=== PATIENT | female | born 1955 | race Caucasian/White ===

== ENCOUNTER → 2017-01-20 | Outpatient (CLI) | payer OTHER ==
--- NOTE | 2017-01-20 16:55 | REP ---
MAXILLOFACIAL CT WITHOUT CONTRAST: HISTORY: Chronic maxillary sinusitis. COMPARISON: 08/08/2008. The sinuses are clear. The osteomeatal units are patent. The middle and inferior nasal turbinates are partially paradoxical. There is minimal deviation of the nasal septum to the left. A spur is present arising from the left side of the nasal septum. The cribriform plate, medial cool of the orbits and optic canals are intact. The carotid canals form a segment of the posterolateral cool of the sphenoid sinus. IMPRESSION:There is no acute or chronic sinusitis. Signed by Denis Holt MD 01/20/2017 05:03 P
== END ==
LOC: M RAD 16:00
PROVIDERS: ATTEND Otolaryngology
DX: J31.0 Chronic rhinitis (principal)

== ENCOUNTER → 2017-02-10 | Outpatient (CLI) | payer OTHER | LOC: M LAB 10:21 | PROVIDERS: ATTEND Ophthalmology | DX: Z51.81 Encounter for therapeutic drug level monitoring (principal); Z79.899 Other long term (current) drug therapy; I77.6 Arteritis, unspecified ==

== ENCOUNTER → 2017-02-10 | Outpatient (CLI) | payer OTHER ==
[2017-02-10 11:54] LABS: ALBUMIN/GLOBULIN RATIO 1.11 (1.00-1.93); BILIRUBIN,DIRECT 0.2 MG/DL (0.0-0.2); BILIRUBIN,TOTAL 0.7 MG/DL (0.2-1.0); TOTAL PROTEIN 7.6 GM/DL (6.4-8.2)
== END ==
LOC: M LAB 10:17
PROVIDERS: ATTEND Podiatrist
DX: Z51.81 Encounter for therapeutic drug level monitoring (principal); Z79.899 Other long term (current) drug therapy

== ENCOUNTER → 2017-05-31 | Outpatient (REF) | payer OTHER ==
[2017-05-31 18:57] LABS: FOLATE > 24.0 NG/ML; VITAMIN B12 LEVEL 671 PG/ML
[2017-05-31 19:30] LABS: IRON (FE) 85 UG/DL (50-170); PERCENT SATURATION 24.3 % (13.2-45.0); TOTAL IRON BINDING CAPACITY 350 UG/DL (250-450)
== END ==
LOC: M LAB REF 18:02
DX: D72.819 Decreased white blood cell count, unspecified (principal)

== ENCOUNTER → 2017-11-04 | Outpatient (REF) | payer OTHER ==
[2017-11-04 13:29] LABS: BASO % 0.5 % (0.0-1.0); EOS # 0.1 10^3/uL (0.0-0.50); EOS % 2.2 % (0.0-3.0); HEMATOCRIT 40.5 % (36.0-47.0); HEMOGLOBIN 14.3 g/dl (12.0-15.5); IMMATURE GRANULOCYTE % 0.3 % (0-3.0); LYMPH # 1.2 10^3/uL (1.5-4.5); LYMPH % 32.7 % (24.0-44.0); MEAN CORPUSCULAR HEMOGLOBIN 31.6 pg (27.0-33.0); MEAN CORPUSCULAR HGB CONC 35.3 g/dl (32.0-36.5); MEAN CORPUSCULAR VOLUME 89.4 fl (80.0-96.0); MONO # 0.6 10^3/uL (0.0-0.8); MONO % 15.3 % (0.0-5.0); NEUTROPHILS # 1.8 10^3/uL (1.8-7.7); PLATELET COUNT, AUTOMATED 168 10^3/uL (150-450); RED BLOOD COUNT 4.53 10^6/uL (4.00-5.40); RED CELL DISTRIBUTION WIDTH 12.4 % (11.5-14.5); WHITE BLOOD COUNT 3.7 10^3/uL (4.0-10.0)
[2017-11-04 13:42] LABS: ALBUMIN 3.8 GM/DL (3.2-5.2); ALBUMIN/GLOBULIN RATIO 1.27 (1.00-1.93); ALKALINE PHOSPHATASE 66 U/L (45-117); ALT/SGPT 27 U/L (12-78); ANION GAP 8 MEQ/L (8-16); AST/SGOT 13 U/L (7-37); BILIRUBIN,TOTAL 0.4 MG/DL (0.2-1.0); BLOOD UREA NITROGEN 16 MG/DL (7-18); CALCIUM LEVEL 8.9 MG/DL (8.8-10.2); CARBAMAZEPINE (TEGRETOL) LEVEL 5.5 UG/ML (4.0-10.0); CARBON DIOXIDE LEVEL 28 MEQ/L (21-32); CHLORIDE LEVEL 102 MEQ/L (98-107); CREATININE FOR GFR 0.48 MG/DL (0.55-1.30); GLOMERULAR FILTRATION RATE > 60.0 (>45); GLUCOSE, FASTING 84 MG/DL (70-100); POTASSIUM SERUM 4.2 MEQ/L (3.5-5.1); SODIUM LEVEL 138 MEQ/L (136-145); TOTAL PROTEIN 6.8 GM/DL (6.4-8.2)
== END ==
LOC: M LABNEURO 09:35
DX: Z51.81 Encounter for therapeutic drug level monitoring (principal); Z79.899 Other long term (current) drug therapy

== ENCOUNTER → 2018-05-11 | Outpatient (CLI) | payer OTHER ==
[2018-05-12 14:55] LABS: SSA SJOGRENS A <0.2 AI (0.0-0.9); SSB SJOGRENS B <0.2 AI (0.0-0.9)
== END ==
LOC: M LAB 11:28
PROVIDERS: ATTEND Ophthalmology
DX: M35.00 Sjogren syndrome, unspecified (principal)

== ENCOUNTER 2018-10-12 07:15 | Day surgery (SDC) | payer OTHER ==
[~2018-10-12] VITALS: Ht 160 cm; Wt 91.2 kg
[~2018-10-12 07:15] MED LIST: COMB0.2S OU; EXEM25TA PO; NS 1,000 ML IV ONE; TRAV04OPD OU; vitamins
[2018-10-12] MEDS ORDERED: PROPOFOL 200 MG/20 ML VIAL As Ordered ONE (07:49)
[2018-10-12] MEDS ORDERED: LIDOCAINE 2% INJ 100 MG/5 ML SDV (FOR ANES.) As Ordered ONE (08:20)
[2018-10-12] MEDS ORDERED: fentaNYL 100 MCG/2 ML INJECTION (J3010) As Ordered ONE (08:20)
--- NOTE | 2018-10-12 09:36 | ROOR ---
Patient Name: Lisa Leal Procedure Date: 10/12/2018 9:10 AM Date of : 1955 Age: 63 Room: [facility] Gender: Female Note Status: Finalized Procedure: Upper Endoscopy + Biopsies Indications: Heartburn, Exclusion of Mendoza's esophagus Providers: Clyde Pugh MD Referring MD: CASSI HOGAN JR, MD Requesting Provider: Medicines: Monitored Anesthesia Care Complications: No immediate complications. Procedure: Pre-Anesthesia Assessment: - The heart rate, respiratory rate, oxygen saturations, blood pressure, adequacy of pulmonary ventilation, and response to care were monitored throughout the procedure. The Endoscope was introduced through the mouth, and advanced to the second part of duodenum. The upper GI endoscopy was accomplished without difficulty. The patient tolerated the procedure well. Findings: The Z-line was irregular and was found 38 cm from the incisors. Multiple biopsies were obtained with cold forceps for evaluation to rule out Mendoza's Esophagus randomly at the gastroesophageal junction. A small hiatal hernia was present. Multiple localized, diminutive non-bleeding erosions were found in the gastric antrum. There were no stigmata of recent bleeding. Biopsies were taken with a cold forceps for Helicobacter pylori testing. The exam of the duodenum was otherwise normal. Impression: - Z-line irregular, 38 cm from the incisors. - Small hiatal hernia. - Non-bleeding erosive gastropathy. Biopsied. - Multiple biopsies were obtained at the gastroesophageal junction. - The examination was otherwise normal. Recommendation: - Patient has a contact number available for emergencies. The signs and symptoms of potential delayed complications were discussed with the patient. Return to normal activities tomorrow. Written discharge instructions were provided to the patient. - High fiber diet. - Discharge patient to home. - Follow an antireflux regimen. - Continue present medications. - Await pathology results. - Telephone GI clinic for pathology results in 1 week. - Return to referring physician. - The findings and recommendations were discussed with the patient's family. Clyde Pugh MD Clyde Pugh MD 10/12/2018 9:35:57 AM Electronically signed by Clyde Pugh MD Number of Addenda: 0 Note Initiated On: 10/12/2018 9:10 AM Estimated Blood Loss: Estimated blood loss: none.
--- NOTE | 2018-10-12 09:54 | ROOR ---
Patient Name: Lisa Leal Procedure Date: 10/12/2018 9:11 AM Date of : 1955 Age: 63 Room: [facility] Gender: Female Note Status: Finalized Procedure: Total Colonoscopy to Cecum Indications: Colon cancer screening in patient at increased risk: Family history of 1st-degree relative with colon polyps, High risk colon cancer surveillance: Personal history of colonic polyps Providers: Clyde Pugh MD Referring MD: CASSI HOGAN JR, MD Requesting Provider: Medicines: Monitored Anesthesia Care Complications: No immediate complications. Procedure: Pre-Anesthesia Assessment: - The heart rate, respiratory rate, oxygen saturations, blood pressure, adequacy of pulmonary ventilation, and response to care were monitored throughout the procedure. The Colonoscope was introduced through the anus and advanced to the cecum, identified by appendiceal orifice and ileocecal valve. The colonoscopy was performed without difficulty. The patient tolerated the procedure well. The quality of the bowel preparation was good. Findings: The perianal and digital rectal examinations were normal. Non-bleeding internal hemorrhoids were found during retroflexion. The hemorrhoids were small and Grade I (internal hemorrhoids that do not prolapse). Scattered small-mouthed diverticula were found in the recto-sigmoid colon, sigmoid colon and descending colon. The exam was otherwise without abnormality on direct and retroflexion views. Impression: - Non-bleeding internal hemorrhoids. - Diverticulosis in the recto-sigmoid colon, in the sigmoid colon and in the descending colon. - The examination was otherwise normal on direct and retroflexion views. - No specimens collected. - The exam was otherwise normal to the cecum. Recommendation: - Patient has a contact number available for emergencies. The signs and symptoms of potential delayed complications were discussed with the patient. Return to normal activities tomorrow. Written discharge instructions were provided to the patient. - High fiber diet. - Discharge patient to home. - Continue present medications. - Repeat colonoscopy in 5 years for surveillance. - Return to referring physician. - The findings and recommendations were discussed with the patient's family. Clyde Pugh MD Clyde Pugh MD 10/12/2018 9:54:44 AM Electronically signed by Clyde Pugh MD Number of Addenda: 0 Note Initiated On: 10/12/2018 9:11 AM Estimated Blood Loss: Estimated blood loss: none.
[2018-10-12 10:25] VITALS: BP 144/86
== END 2018-10-12 10:50 | disposition home or self-care (01) ==
LOC: M OPP 07:15
PROVIDERS: ATTEND Internal Medicine Gastroenterology
DX: K64.0 First degree hemorrhoids (principal); K57.30 Diverticulosis of large intestine without perforation or abscess without bleeding; K22.8 Other specified diseases of esophagus; K44.9 Diaphragmatic hernia without obstruction or gangrene; K31.89 Other diseases of stomach and duodenum; R12 Heartburn; Z12.11 Encounter for screening for malignant neoplasm of colon; Z83.71 Family history of colonic polyps; Z86.010 Personal history of colon polyps
CPT/HCPCS: 43239; 45378; 88305; J3010

== ENCOUNTER → 2020-04-01 | Outpatient (CLI) | payer SELFPAY ==
[~2020-04-01] MED LIST changes: -NS 1,000 ML IV ONE
== END ==
LOC: M LABSMTC 14:03
PROVIDERS: ATTEND Pediatrics
DX: Z20.828 Contact with and (suspected) exposure to other viral communicable diseases (principal)

== ENCOUNTER → 2021-06-26 | Outpatient (CLI) | payer MEDICARE, SELFPAY ==
[2021-06-26 12:23] LABS: BASO % 0.2 % (0.0-1.0); EOS # 0.1 10^3/uL (0.0-0.5); EOS % 2.2 % (0.0-3.0); HEMATOCRIT 44.8 % (36.0-47.0); HEMOGLOBIN 15.4 g/dl (12.0-15.5); LYMPH # 2.2 10^3/uL (1.5-5.0); MEAN CORPUSCULAR HEMOGLOBIN 30.3 pg (27.0-33.0); MEAN CORPUSCULAR HGB CONC 34.4 g/dl (32.0-36.5); MEAN CORPUSCULAR VOLUME 88.2 fl (80.0-96.0); MONO # 0.5 10^3/uL (0.0-0.8); MONO % 10.5 % (2.0-8.0); NEUTROPHILS # 2.2 10^3/uL (1.5-8.5); NEUTROPHILS % 43.9 % (36.0-66.0); PLATELET COUNT, AUTOMATED 194 10^3/uL (150-450); RED BLOOD COUNT 5.08 10^6/uL (4.00-5.40); WHITE BLOOD COUNT 5.1 10^3/uL (4.0-10.0)
[2021-06-26 12:52] LABS: ALBUMIN 4.1 GM/DL (3.2-5.2); ALT/SGPT 51 U/L (12-78); BILIRUBIN,TOTAL 1.1 MG/DL (0.2-1.0); BLOOD UREA NITROGEN 11 MG/DL (7-18); CALCIUM LEVEL 10.1 MG/DL (8.8-10.2); CARBON DIOXIDE LEVEL 28 MEQ/L (21-32); CHLORIDE LEVEL 105 MEQ/L (98-107); CHOLESTEROL LEVEL 200 MG/DL (< 200); CPK CREATINE PHOSPHOKINASE 57 U/L (26-192); CREATININE FOR GFR 0.59 MG/DL (0.55-1.30); GLOMERULAR FILTRATION RATE > 60.0 (>45); GLUCOSE, FASTING 85 MG/DL (70-100); LDH LACTATE DEHYDROGENASE 153 U/L (84-246); PHOSPHORUS LEVEL 3.6 MG/DL (2.5-4.9); POTASSIUM SERUM 4.4 MEQ/L (3.5-5.1); RHEUMATOID FACTOR QUANT < 10.0 IU/ML (<15.0); SODIUM LEVEL 138 MEQ/L (136-145); TOTAL PROTEIN 7.7 GM/DL (6.4-8.2); TRIGLYCERIDES LEVEL 103 MG/DL (<150)
[2021-06-26 12:59] LABS: ERYTHROCYTE SEDIMENTATION RATE 9 mm/hr (0-30)
== END ==
LOC: M LAB 10:55
PROVIDERS: ATTEND Ophthalmology
DX: M35.00 Sjogren syndrome, unspecified (principal)

== ENCOUNTER → 2022-05-01 | Outpatient (CLI) | payer MEDICARE, OTHER | LOC: M WHC 10:05 | PROVIDERS: ATTEND Physician Assistant Medical | DX: C50.412 Malignant neoplasm of upper-outer quadrant of left female breast (principal); Z17.0 Estrogen receptor positive status [ER+]; Z79.811 Long term (current) use of aromatase inhibitors; M85.89 Other specified disorders of bone density and structure, multiple sites ==

== ENCOUNTER 2022-10-14 08:52 | Emergency (ER) | payer MEDICARE, OTHER ==
[~2022-10-14] VITALS: Ht 160 cm; Wt 77.0 kg
[2022-10-14] MEDS ORDERED: DOXY100T27 (09:02)
[2022-10-14] MEDS ORDERED: PILO1OPD (09:02)
[2022-10-14 10:18] LABS: HEMATOCRIT 38.3 % (36.0-47.0); HEMOGLOBIN 12.9 g/dl (12.0-15.5); MEAN CORPUSCULAR HEMOGLOBIN 29.9 pg (27.0-33.0); MEAN CORPUSCULAR HGB CONC 33.7 g/dl (32.0-36.5); MEAN CORPUSCULAR VOLUME 88.9 fl (80.0-96.0); PLATELET COUNT, AUTOMATED 275 10^3/uL (150-450); RED BLOOD COUNT 4.31 10^6/uL (4.00-5.40); WHITE BLOOD COUNT 5.1 10^3/uL (4.0-10.0)
[2022-10-14 10:40] LABS: BLOOD UREA NITROGEN 7 MG/DL (9-23); CALCIUM LEVEL 8.8 MG/DL (8.3-10.6); CARBON DIOXIDE LEVEL 30 MMOL/L (20-31); CHLORIDE LEVEL 104 MMOL/L (98-107); CREATININE FOR GFR 0.47 MG/DL (0.55-1.30); GLOMERULAR FILTRATION RATE > 60.0 (>45); GLUCOSE, FASTING 89 MG/DL (74-106); POTASSIUM SERUM 4.4 MMOL/L (3.5-5.1); SODIUM LEVEL 139 MMOL/L (136-145)
[2022-10-14] MEDS ORDERED: predniSONE 20 MG TAB PO ONE (11:30)
[2022-10-14] MEDS ORDERED: valACYclovir HCL 500 MG TAB PO ONE (11:30)
[2022-10-14] MEDS ORDERED: PRED20TA PO (11:45)
[2022-10-14] MEDS ORDERED: ARTIDRO4 OD (11:45)
[2022-10-14] MEDS ORDERED: [UNRECOGNIZED DRUG - CODE] OP (11:45)
[2022-10-14] MEDS ORDERED: VALT1TAB PO (11:45)
[2022-10-14] MEDS ORDERED: CVS1MIS79 XX (11:46)
[2022-10-14 12:00] VITALS: BP 135/67; TEMP 97.3; O2SAT 98
== END 2022-10-14 12:10 | disposition home or self-care (01) ==
LOC: M ED 08:52
DX: G51.0 Bell's palsy (principal); Z85.3 Personal history of malignant neoplasm of breast; Z79.899 Other long term (current) drug therapy; Z88.6 Allergy status to analgesic agent; Z88.2 Allergy status to sulfonamides; Z88.8 Allergy status to other drugs, medicaments and biological substances; Z88.1 Allergy status to other antibiotic agents
CPT/HCPCS: 70450; 80048; 85027; 86618; 99284; J7512

== ENCOUNTER → 2023-01-29 | Outpatient (CLI) | payer MEDICARE, OTHER ==
[~2023-01-29] MED LIST changes: +ARTIDRO4 OD; +CVS1MIS79 XX; +DOXY100T27; +PILO1OPD; +PRED20TA PO; +VALT1TAB PO; +[UNRECOGNIZED DRUG - CODE] OP
== END ==
LOC: M PLAIMG 06:53
PROVIDERS: ATTEND Physician Assistant
DX: M50.10 Cervical disc disorder with radiculopathy, unspecified cervical region (principal); M50.222 Other cervical disc displacement at C5-C6 level; M47.892 Other spondylosis, cervical region; M60.812 Other myositis, left shoulder

== ENCOUNTER → 2023-12-01 | Outpatient (REF) | payer MEDICARE, OTHER | LOC: M SFHCDERM 17:21 | PROVIDERS: ATTEND Physician Assistant | DX: L72.0 Epidermal cyst (principal) ==

== ENCOUNTER → 2024-05-25 | Outpatient (CLI) | payer MEDICARE, OTHER | LOC: M WHC 10:06 | PROVIDERS: ATTEND Internal Medicine | DX: M85.9 Disorder of bone density and structure, unspecified (principal) ==

== ENCOUNTER → 2024-07-24 | Outpatient (CLI) | payer MEDICARE, OTHER | LOC: M WUC 11:21 | PROVIDERS: ATTEND Physician Assistant Medical | DX: R05.9 Cough, unspecified (principal); R06.02 Shortness of breath; J06.9 Acute upper respiratory infection, unspecified ==

== ENCOUNTER → 2024-08-16 | Outpatient (REF) | payer MEDICARE, OTHER ==
[2024-08-16 18:04] LABS: RSV AMPLIFICATION NEGATIVE (NEGATIVE)
== END ==
LOC: M LAB REF 16:53
PROVIDERS: ATTEND Physician Assistant Medical
DX: J01.90 Acute sinusitis, unspecified (principal)

== ENCOUNTER → 2024-09-12 | Outpatient (CLI) | payer MEDICARE, OTHER | LOC: M WUC 12:36 | PROVIDERS: ATTEND Internal Medicine | DX: M54.50 Low back pain, unspecified (principal); M85.88 Other specified disorders of bone density and structure, other site ==

== ENCOUNTER → 2025-02-26 | Outpatient (CLI) | payer MEDICARE, OTHER ==
[2025-02-26 14:44] LABS: CREATININE FOR GFR 0.56 MG/DL (0.55-1.30); GLOMERULAR FILTRATION RATE > 90.0 (>39)
== END ==
LOC: M WUC 10:22
PROVIDERS: ATTEND Psychiatry & Neurology Neurology
DX: I10 Essential (primary) hypertension (principal)